=== PATIENT | female | born 1990 | race Caucasian/White ===

== ENCOUNTER 2017-04-30 17:13 | Emergency (ER) | payer BC, OTHER ==
[~2017-04-30] VITALS: Ht 170.2 cm; Wt 120.2 kg
[2017-04-30 18:29] LABS: Basophils # (auto) 0.1 uL; Basophils % (auto) 0.9 % (0.0-2.0); Eosinophils # (auto) 0.1 uL; Eosinophils % (auto) 1.3 % (0.0-7.0); Hematocrit 39.5 % (36.0-46.0); Hemoglobin 13.2 g/dL (12.2-16.2); Lymphocytes # (auto) 1.9 uL; Lymphocytes % (auto) 25.5 % (10.0-50.0); Mean Corpuscular Hemoglobin 27.2 pg (28.0-32.0); Mean Corpuscular Hgb Conc. 33.5 g/dL (32.0-36.0); Mean Corpuscular Volume 81.1 fL (80.0-100.0); Mean Platelet Volume 7.5 fL (7.4-10.4); Monocytes # (auto) 0.8 uL; Monocytes % (auto) 10.7 % (0.0-12.0); Neutrophils # (auto) 4.5 uL; Neutrophils % (auto) 61.6 % (37.0-80.0); Platelet Count (auto) 280 10^3/uL (140-450); Red Cell Distribution Width 16.2 % (11.6-16.0); White Blood Cell 7.4 10^3/uL (4.4-10.8)
[2017-04-30 18:42] LABS: Albumin 3.6 g/dL (3.4-5.0); BUN/Creatinine Ratio 7.3; Bilirubin, Total 0.6 mg/dL (0.2-1.0); Calcium 8.9 mg/dL (8.5-10.1); Potassium 3.8 mmol/L (3.5-5.1); Total Protein 7.7 g/dL (6.4-8.2)
[2017-04-30 18:58] LABS: Urine Bilirubin Negative (Negative); Urine Blood 2+ /uL (Negative); Urine Color Yellow (Yellow); Urine Glucose Normal (Normal); Urine Ketone Negative (Negative); Urine Mucus FEW (None Seen); Urine Nitrite Negative (Negative); Urine RBC 1 /hpf (0 - 4); Urine Squamous Epithelial Cell FEW /hpf (<5); Urine Urobilinogen Normal (Negative)
[2017-04-30 21:04] VITALS: BP 122/64
[2017-04-30] MEDS ORDERED: CEPHALEXIN 250 MG CAP PO ONE (21:30)
[2017-04-30] MEDS ORDERED: HYDROcodone-ACET 10/325MG TAB PO ONE (21:30)
[2017-04-30] MEDS ORDERED: SODIUM CHLORIDE 0.9% 1,000 ML IV ONE (21:30)
[2017-04-30] MEDS ORDERED: CLINDAMYCIN HCL 150 MG CAP PO ONE (21:30)
[2017-04-30] MEDS ORDERED: TETANUS-DIPTH-ACEL PERTUSSIS 0.5ML SYRG IM ONE (21:30)
== END 2017-04-30 21:34 | disposition home or self-care (01) ==
LOC: ER 17:21
DX: R53.1 Weakness (principal); F32.9 Major depressive disorder, single episode, unspecified; L08.9 Local infection of the skin and subcutaneous tissue, unspecified; F41.9 Anxiety disorder, unspecified; Z23 Encounter for immunization
CPT/HCPCS: 36415; 80053; 81001; 85025; 90471; 90715